=== PATIENT | male | born 1980 | race Caucasian/White ===

== ENCOUNTER 2024-01-01 22:07 | Emergency (ER) | payer MEDICAID ==
[~2024-01-01] VITALS: Ht 170.2 cm; Wt 73.0 kg
[2024-01-01 22:21] VITALS: O2SAT 98
[2024-01-02 02:21] VITALS: BP 129/87; PULSE 80; RESP 19; TEMP 37.11408; O2SAT 97
== END 2024-01-02 02:22 | disposition home or self-care (01) ==
LOC: ER 22:07
DX: B34.9 Viral infection, unspecified (principal)
CPT/HCPCS: 71045; 99283